=== PATIENT | female | born 1950 | race Caucasian/White ===

== ENCOUNTER → 2019-01-02 | Outpatient (CLI) | payer BC, MEDICARE | END | disposition home or self-care (01) | LOC: LAB SHORT 17:38 → LAB EV 17:38 | DX: N39.0 Urinary tract infection, site not specified (principal) | CPT/HCPCS: 87086; 87147 ==

== ENCOUNTER → 2019-02-02 | Outpatient (CLI) | payer BC, MEDICARE | END | disposition home or self-care (01) | LOC: LAB SHORT 10:02 → LAB EV 10:02 | DX: R30.9 Painful micturition, unspecified (principal) | CPT/HCPCS: 87086; 87147 ==

== ENCOUNTER 2020-11-05 11:25 | Inpatient (IN) | payer OTHER ==
[~2020-11-05] VITALS: Ht 160 cm; Wt 77.0 kg
[2020-11-05] MEDS ORDERED: ESTRADIOL1 M1 PO (11:48)
[2020-11-05] MEDS ORDERED: LISI5 PO (11:48)
[2020-11-05] MEDS ORDERED: PRAVASTATIN SOD20 MG PO (11:49)
[2020-11-05] MEDS ORDERED: ZOLOFT100 M6 PO (11:49)
[2020-11-05 11:58] LABS: Hemoglobin 13.8 g/dL (11.5-16.0); Mean Corpuscular HGB 29.2 pg (26.0-34.0); Mean Corpuscular HGB Conc 32.9 g/dL (31.5-36.5); Mean Corpuscular Volume 89 fL (80-100); Mean Platelet Volume 11.8 fL (9.1-12.4); Platelet Count 209 K/mm3 (150-400); RDW Coefficient Variation 13.5 % (11.7-14.2); RDW Standard Deviation 44.3 fL (35.1-46.3); Red Blood Cell Count 4.73 M/mm3 (3.80-5.20); White Blood Cell Count 8.56 K/mm3 (4.00-11.30)
[2020-11-05 12:15] LABS: International Normalized Ratio 0.95; Prothrombin Time Results 10.3 Sec (9.7-11.5)
[2020-11-05 12:28] LABS: Anion Gap 5 mmol/L (6-16); Blood Urea Nitrogen 13 mg/dL (8-24); Bun/Creatinine Ratio 17.2 (12.0-20.0); CHOL/HDL RATIO 4.4; CO2, Blood 26 mmol/L (21-32); CPK Creatine Kinase 164 U/L (26-193); Calcium, Blood 9.2 mg/dL (8.5-10.1); Chloride, Blood 108 mmol/L (98-108); Cholesterol 198 mg/dL (50-200); Creatine Kinase MB 10.2 ng/mL (0.0-3.6); Creatine Kinase MB Index 6.2 (0.0-4.0); Creatinine, Blood 0.76 mg/dL (0.40-1.00); Glomerular Filtration Rate >60 (60-); Glucose, Blood 99 mg/dL (70-99); HDL Cholesterol 45 mg/dL (>39); LDL/HDL RATIO 2.8; Low Density Lipoprotein Chol 127 mg/dL (0-110); Magnesium, Blood 1.9 mg/dL (1.6-2.4); Potassium, Blood 3.9 mmol/L (3.5-5.5); Sodium, Blood 139 mmol/L (136-145); Triglycerides 132 mg/dL (30-160); Very Low Density Lipoprot Chol 26 mg/dL (6-32)
[2020-11-05 16:09] LABS: Alanine Aminotransfer (ALT/SGP 20 U/L (12-78); Albumin, Blood 3.3 g/dL (3.4-5.0); Albumin/Globulin Ratio 1.1 (0.8-1.8); Alk Phos 54 U/L (50-136); Anion Gap 6 mmol/L (6-16); Aspartate Aminotrans (AST/SGOT 22 U/L (12-37); Bilirubin, Total 0.4 mg/dL (0.1-1.0); Blood Urea Nitrogen 11 mg/dL (8-24); Bun/Creatinine Ratio 14.3 (12.0-20.0); CO2, Blood 26 mmol/L (21-32); Calcium, Blood 8.4 mg/dL (8.5-10.1); Chloride, Blood 109 mmol/L (98-108); Creatinine, Blood 0.77 mg/dL (0.40-1.00); Globulin, Blood 2.9 g/dL (2.2-4.0); Glomerular Filtration Rate >60 (60-); Glucose, Blood 110 mg/dL (70-99); Potassium, Blood 3.9 mmol/L (3.5-5.5); Sodium, Blood 141 mmol/L (136-145); Total Protein, Blood 6.2 g/dL (6.4-8.2)
--- NOTE | 2020-11-05 16:30 | NUR ---
ECHO done in room and slowly stood her up to bed side cammode, she was not weak or dizzy at sitting positions and not at standing and transferred well. She has 1300 yellow urine in bedside cammode. She stated she had headache and medicated per MAR with Tylenol. VSS, See EMR. She was a little hypotensive, but is in the 90 systolic. She is sitting up in bed with water at bedside and call light within reach.
--- NOTE | 2020-11-05 16:44 | NUR ---
Patient arrived from lab tech with monitor. She was alert and oriented and on RA. She is able to communicate her needs. She has closure device to right groin access and has small amount of blood under CHG dressing. She is able to MAEW. Finishing fluids that arrived with her NS. She has 20 ga to left wrist and 18ga to LAC infusing NS. She has been instructed to lay flatand no getting out of bed. She has call light within reach.
--- NOTE | 2020-11-05 18:17 | NUR ---
at bedside. Patient tolerating sitting up in bed. Right groin site WNL's and no new signs of bleding or hematoma below CHG dressing. Ordered cardiac diet for dinner. VSS, See EMR, Patient one person assist u7p out of bed until up several more times.
--- NOTE | 2020-11-05 19:30 | NUR ---
PT IS ALERT AND ORIENTED, LYING IN BED. R GROIN SITE WITH 1.5" X 2" BRUISE AROUND SITE, WITH APPX DIME SIZE AMOUNT OF BLOOD UNDER CHG DRESSING, WITH APPX QUARTER SIZE FIRM TO PALPATION AREA UNDER CHG DRESSING - REVIEWED WITH AMEE ARIAS. PT DENIES ANY PAIN AT SITE. PT DENIES FEELING DIZZY, LIGHTHEADED, SOB, CHEST PAIN, NAUSEA, OR NUMBNESS/TINGLING. NS INFUSING AT 200 CC HOUR WITHOUT COMPLICATIONS. STRONG PULSES BLE. CALL LIGHT WITHIN REACH. BED IN LOW POSITION. FLUIDS AT BEDSIDE.
--- NOTE | 2020-11-05 20:55 | NUR ---
SPOKE TO DR. CAVAZOS (PER REQUEST OF HUGO LUBIN) TO SEE IF POSSIBLE TO CHANGE PT TO MEDICAL FLOOR STATUS - DR. CAVAZOS REPORTED PT DID HAVE A LARGE INFARCT, AND IS AT RISK FOR ARRYTHMIAS - NO CHANGE IN FLOOR STATUS AT THIS TIME.
--- NOTE | 2020-11-05 21:15 | NUR ---
NO CHANGE TO R GROIN SITE. PT IS NPO FOR AM CORONARY RISK PANEL IN AM. CALL LIGHT WITHIN REACH. BED IN LOW POSITION.
--- NOTE | 2020-11-05 22:06 | NUR ---
NO CHANGE TO RIGHT GROIN SITE FROM BEGINNING OF SHIFT.
--- NOTE | 2020-11-06 01:00 | NUR ---
REPORT GIVEN TO ERIK RODARTE.
--- NOTE | 2020-11-06 01:17 | NUR ---
PT TRANSFERRED TO PCU, ROOM 15 - [facility] TOOK PT VIA WHEELCHAIR TO PCU.
--- NOTE | 2020-11-06 01:51 | NUR ---
CARE ASSUMPTION PT ARRIVED TO PCU AND WAS ABLE TO TRANSFER SELF FROM WHEELCHAIR TO PCU BED W NO ASSISTANCE. PT DENYING ANY PAIN OR NAUSEA AT THIS TIME. O2 SATS >94% ON RM AIR. BP WNL. TELE NSR AT 65. PT DENYING ANY OTHER NEEDS AT THIS TIME.
[2020-11-06 04:25] LABS: BASOPHILS ABSOLUTE AUTO 0.02 K/mm3 (0.00-0.23); BASOPHILS PERCENT AUTO 0 % (0-2); EOSINOPHILS ABSOLUTE AUTO 0.11 K/mm3 (0.00-0.68); EOSINOPHILS PERCENT AUTO 2 % (0-6); Hematocrit 37.1 % (33.0-51.0); Hemoglobin 12.2 g/dL (11.5-16.0); IMMATURE GRAN ABSOLUTE AUTO 0.01 K/mm3 (0.00-0.10); IMMATURE GRAN PERCENT AUTO 0 % (0-1); LYMPHOCYTES ABSOLUTE AUTO 1.81 K/mm3 (0.84-5.20); LYMPHOCYTES PERCENT AUTO 29 % (21-46); MONOCYTES ABSOLUTE AUTO 0.43 K/mm3 (0.16-1.47); MONOCYTES PERCENT AUTO 7 % (4-13); Mean Corpuscular HGB Conc 32.9 g/dL (31.5-36.5); Mean Corpuscular Volume 88 fL (80-100); Mean Platelet Volume 11.9 fL (9.1-12.4); NEUTROPHILS ABSOLUTE AUTO 3.94 K/mm3 (1.96-9.15); NEUTROPHILS PERCENT AUTO 62 % (41-73); Platelet Count 164 K/mm3 (150-400); RDW Coefficient Variation 13.6 % (11.7-14.2); RDW Standard Deviation 43.9 fL (35.1-46.3); Red Blood Cell Count 4.21 M/mm3 (3.80-5.20); White Blood Cell Count 6.32 K/mm3 (4.00-11.30)
[2020-11-06 04:49] LABS: Anion Gap 6 mmol/L (6-16); Blood Urea Nitrogen 12 mg/dL (8-24); Bun/Creatinine Ratio 17.5 (12.0-20.0); CHOL/HDL RATIO 5.1; CO2, Blood 25 mmol/L (21-32); Calcium, Blood 8.8 mg/dL (8.5-10.1); Chloride, Blood 113 mmol/L (98-108); Cholesterol 169 mg/dL (50-200); Creatinine, Blood 0.69 mg/dL (0.40-1.00); Glomerular Filtration Rate >60 (60-); Glucose, Blood 96 mg/dL (70-99); HDL Cholesterol 33 mg/dL (>39); LDL/HDL RATIO 3.1; Low Density Lipoprotein Chol 104 mg/dL (0-110); Potassium, Blood 3.8 mmol/L (3.5-5.5); Sodium, Blood 144 mmol/L (136-145); Triglycerides 162 mg/dL (30-160); Very Low Density Lipoprot Chol 32 mg/dL (6-32)
--- NOTE | 2020-11-06 05:55 | NUR ---
MONEY MANAGER SUMMARY PT HAS DENIED ANY CP OR PRESSURE THIS SHIFT. BP IS WNL AND STABLE. R GROIN SITE IS BRUISED BUT SOFT AND NONTENDER W NO S/S OF ACTIVE BLEEDING. PT GIVEN TYLENOL X1 THIS SHIFT FOR HEADACHE. TELE SHOWING SR IN THE 60'S. WILL REPORT TO ONCOMING ERIK.
[2020-11-06] MEDS ORDERED: ASPI81CH PO (11:46)
[2020-11-06] MEDS ORDERED: CARV3.125 PO (11:46)
[2020-11-06] MEDS ORDERED: Isosorbide Mono30 MG PO (11:46)
[2020-11-06] MEDS ORDERED: LOSA50 PO (11:47)
[2020-11-06] MEDS ORDERED: SPIR25 PO (11:47)
--- NOTE | 2020-11-06 12:13 | NUR ---
DISCHARGE NOTE: PATIENT WAS EDUCATED ON DISCHARGE INSTRUCTIONS. SHE VERBALIZED UNDERSTANDING OF INSTRUCTIONS. PERSCRIPTIONS WERE FAXED OVER TO HER PREFERRED PHARMACY. IV WAS TAKEN OUT AND WAS WNL. PATIENT IS ALERT AND ORIENTED X4. VS ARE WNL AND IS ON RA. PATIENT DENIES PAIN. RIGHT GROIN SITE IS C/D/I. SHE HAS EXTRA BANDAGES TO REDRESS THE SITE IF NEEDED. SHE HAS HER ITEMS GATHERED IN THE ROOM AND IS DRESSED. SHE IS CURRENTLY BEING WHEELCHAIRED OUT TO HER HUSBANDS CAR TO BE TAKEN HOME. PATIENT WAS A PLEASURE TO WORK WITH.
--- NOTE | 2020-11-06 13:44 | NUR ---
Update 11/06/20: Per Dr. Merino, pt. appropriate for discharge. Scheduled for hospital F/U visit 11/12/20 at 4:[address] Dockery. Patient's will be transporting her home post discharge and slate picker her medications. She denied needs at home. Denied concerns with safety or barriers to discharge.
== END 2020-11-06 12:12 | disposition home or self-care (01) | DRG 287 ==
LOC: ER 11:25 → PCU 12:14 → ICUW 12:14 → PCU 11-06 01:24
PROVIDERS: Emergency Medicine; Internal Medicine Cardiovascular Disease; ADMIT Internal Medicine
PROC: 4A023N7 Measurement of Cardiac Sampling and Pressure, Left Heart, Percutaneous Approach (ICD-10-PCS; principal; 2020-11-05)
PROC: B2111ZZ Fluoroscopy of Multiple Coronary Arteries using Low Osmolar Contrast (ICD-10-PCS; 2020-11-05)
PROC: B2151ZZ Fluoroscopy of Left Heart using Low Osmolar Contrast (ICD-10-PCS; 2020-11-05)
DX: I51.81 Takotsubo syndrome (principal); I50.20 Unspecified systolic (congestive) heart failure; I11.0 Hypertensive heart disease with heart failure; E78.5 Hyperlipidemia, unspecified; I34.0 Nonrheumatic mitral (valve) insufficiency; F41.9 Anxiety disorder, unspecified; Z87.891 Personal history of nicotine dependence; Z79.899 Other long term (current) drug therapy; Z90.49 Acquired absence of other specified parts of digestive tract; Z90.710 Acquired absence of both cervix and uterus
CPT/HCPCS: 36415; 71046; 76937; 80048; 80053; 80061; 82550; 82553; 83735; 83880; 84484; 85025; 85027; 85347; 85379; 85610; 85730; 86850; 86900; 86901; 93005; 93010; 93458; 99152; 99153; 99285-25; A9270; C1760; C1769; C1894; C8923; J0690; J1644; J2250; J3010; J7030; J7050; Q9957; Q9967

== ENCOUNTER → 2022-03-30 | Outpatient (CLI) | payer OTHER ==
[~2022-03-30] MED LIST: ASPI81CH PO; CARV3.125 PO; ESTRADIOL1 M1 PO; Isosorbide Mono30 MG PO; LISI5 PO; LOSA50 PO; PRAVASTATIN SOD20 MG PO; SPIR25 PO; ZOLOFT100 M6 PO
== END | disposition home or self-care (01) ==
LOC: LAB SHORT 08:25 → LAB 08:25
DX: N39.0 Urinary tract infection, site not specified (principal)
CPT/HCPCS: 87077; 87086; 87186

== ENCOUNTER → 2023-01-15 | Outpatient (CLI) | payer OTHER | LOC: LAB 18:21 → LAB SHORT 18:21 | DX: R82.998 Other abnormal findings in urine (principal) | CPT/HCPCS: 87077; 87086; 87186 ==